=== PATIENT | female | born 1950 | race Caucasian/White ===

== ENCOUNTER → 2020-11-19 11:45 | Outpatient (CLI) | payer MEDICARE, SELFPAY ==
--- NOTE | 2020-11-19 11:48 | DI.MG.S_ITS ---
BILATERAL DIGITAL SCREENING MAMMOGRAM 3D/2D WITH CAD: 11/19/2020 CLINICAL: Routine screening. Comparison is made to exams dated: 06/24/2017 mammogram, 05/13/2015 mammogram - [facility], and 11/07/2008 mammogram - [facility]. The tissue of both breasts is heterogeneously dense. This may lower the sensitivity of mammography. Current study was also evaluated with a Computer Aided Detection (CAD) system. There is an irregular asymmetry with an obscured margin in the left breast middle depth lateral region seen on the craniocaudal view only. This is more prominent. No other significant masses, calcifications, or other findings are seen in either breast. IMPRESSION: INCOMPLETE: NEEDS ADDITIONAL IMAGING EVALUATION The irregular asymmetry in the left breast is indeterminate. Additional views with possible ultrasound are recommended. This exam was interpreted at Station ID: [id number]. NOTE: For mammograms, a report in lay terms will be sent to the patient. Approximately 15% of breast malignancies will not be visualized mammographically. In the management of a palpable breast mass, a negative mammogram must not discourage biopsy of a clinically suspicious lesion. Electronically Signed By: Germania gambino/riley:11/19/2020 16:24:30 copy to: KHOA WALSH letter sent: Additional Imaging Needed ACR BI-RADS Category 0: Incomplete [id number]
== END ==
PROVIDERS: Family Provider Registered Nurse; PCP Registered Nurse; Referring Provider Registered Nurse; Visit Provider Registered Nurse
DX: Z12.31 Encounter for screening mammogram for malignant neoplasm of breast (principal); M85.851 Other specified disorders of bone density and structure, right thigh; Z78.0 Asymptomatic menopausal state
CPT/HCPCS: 77063; 77067; 77080

== ENCOUNTER → 2020-12-05 12:40 | Outpatient (CLI) | payer MEDICARE, SELFPAY ==
--- NOTE | 2020-12-05 | DI.MG.S_ITS ---
UNILATERAL LEFT DIGITAL DIAGNOSTIC MAMMOGRAM 3D/2D WITH ADDITIONAL VIEWS: 12/05/2020 CLINICAL: Additional evaluation requested from prior study. Comparison is made to exams dated: 11/19/2020 mammogram - [facility], 06/24/2017 mammogram, and 05/13/2015 mammogram - [facility]. The tissue of left breast is heterogeneously dense. This may lower the sensitivity of mammography. There is an oval equal density asymmetry with an indistinct margin in the left breast middle depth lateral region seen on the craniocaudal view only. This is less prominent on additional views. No other significant masses or calcifications are seen in the breast. IMPRESSION: INCOMPLETE: NEEDS ADDITIONAL IMAGING EVALUATION The oval equal density asymmetry in the left breast is indeterminate. An ultrasound is recommended. Ultrasound will be performed immediately following the current exam. This exam was interpreted at Station ID: [id number]. NOTE: For mammograms, a report in lay terms will be sent to the patient. Approximately 15% of breast malignancies will not be visualized mammographically. In the management of a palpable breast mass, a negative mammogram must not discourage biopsy of a clinically suspicious lesion. Electronically Signed By: James Dee M.D. ddp/:12/05/2020 13:15:05 copy to: KHOA WALSH ACR BI-RADS Category 0: Incomplete [id number]
--- NOTE | 2020-12-05 12:42 | DI.US.S_ITS ---
LIMITED ULTRASOUND OF LEFT BREAST: 12/05/2020 CLINICAL: Patient returns today to evaluate a focal asymmetry in the left breast. Comparison is made to exams dated: 12/05/2020 mammogram - [facility], 06/24/2017 mammogram - [facility] [place], 11/19/2020 mammogram - [facility], 05/13/2015 mammogram - [facility] [place], and 11/07/2008 mammogram - [facility]. Real-time ultrasound of the left breast 2-5 o'clock region was performed on the area of interest. No discrete cystic or solid mass lesion identified in the area of mammographic abnormality. IMPRESSION: PROBABLY BENIGN There are no abnormalities seen in the lateral left breast to correspond with the mammography finding. A follow-up mammogram in 6 months is recommended to demonstrate stability. This exam was interpreted at Station ID: [id number]. Electronically Signed By: James Dee M.D. ddp/:12/05/2020 14:10:15 copy to: KHOA WALSH letter sent: Followup Recommended Ultrasound BI-RADS: 3 Probably benign
== END ==
PROVIDERS: Family Provider Registered Nurse; PCP Registered Nurse; Referring Provider Registered Nurse; Visit Provider Registered Nurse
DX: R92.8 Other abnormal and inconclusive findings on diagnostic imaging of breast (principal)
CPT/HCPCS: 76642; 77065; G0279

== ENCOUNTER → 2021-05-21 12:03 | Outpatient (CLI) | payer MEDICARE, SELFPAY ==
[2021-05-21 14:41] LABS: COVID19 -Nasal RAPID Negative (Negative)
== END ==
PROVIDERS: Family Provider Registered Nurse; PCP Registered Nurse; Visit Provider Obstetrics & Gynecology
DX: Z20.822 Contact with and (suspected) exposure to COVID-19 (principal); Z01.812 Encounter for preprocedural laboratory examination
CPT/HCPCS: 87635

== ENCOUNTER 2021-05-23 11:45 | Observation (INO) | payer MEDICARE, SELFPAY ==
[2021-05-16 12:27] VITALS: BMI 26.4
[2021-05-22] VITALS (13 sets, daily range): BP systolic 85–127; BP diastolic 40–74; PULSE 57–94; RESP 10–18; TEMP 36.1–36.7; O2SAT 92–100; BMI 26.4
--- NOTE | 2021-05-22 | PATH_ITS ---
[facility] Accession Number: [id number] . 01 Material submitted: . uterus - UTERUS, BILATERAL FALLOPIAN TUBES AND OVARIES . 01 Clinical history: . LAVH BSO A/P TVT W/CYSTO *OPB* . 02 Diagnosis: Uterus, Bilateral Fallopian Tubes and Ovaries, Laparoscopic-Assisted Vaginal Hysterectomy with Bilateral Salpingo-oophorectomy (Weight 39 grams): Cervix with focal parakeratosis. Endocervix with no significant histomorphologic abnormality. Endometrium with cystic atrophy and a benign polyp (7 mm); negative for glandular hyperplasia, cytologic atypia, or malignancy. Myometrium with no significant histomorphologic abnormality. Myometrial vessels with Monckeberg's calcification. Uterine serosa with no significant histomorphologic abnormality. Right ovary with a benign serous cyst (3 mm). Left ovary with multiple benign inclusion cysts (1 mm). Right and left fallopian tubes with minute, benign paratubal cysts (less than 1 mm) and no significant histomorphologic abnormality; negative for atypia or malignancy. [facility] 05/26/2021 1509 Local . 02 Electronically signed: . Sharmila Wells MD, Pathologist NPI- [id number] . 01 Gross description: . The specimen is received in formalin, labeled uterus, bilateral fallopian tubes and ovaries and consists of a 39-gram uterus, cervix, bilateral fallopian tubes and bilateral ovaries. The specimen measures 7.5 cm from superior fundus to cervix by 4.4 cm from cornu to cornu by 2.5 cm from anterior to posterior. The mendez smooth and focally disrupted ectocervix measures 3.0 x 2.9 cm and there is a 1.0 x 0.1 cm os. The serosa is mendez-pink and smooth. The specimen is bivalved to reveal a mendez herringbone endocervical mucosa. The endometrial cavity measures 2.8 x 1.5 cm and displays a mendez-pink hemorrhagic endometrium measuring 0.1 cm in thickness with a 0.7 x 0.5 x 0.3 cm mendez-pink cystic polyp within the posterior endometrial cavity. The myometrium is mendez-pink and trabeculated measuring 1.5 cm in thickness. The right ovary measures 1.5 x 0.9 x 0.5 cm and the left ovary measures 1.9 x 0.8 x 0.6 cm. The external surfaces are mendez and cerebriform. There is a 0.3 x 0.3 x 0.2 cm mendez smooth-walled cyst within the right ovary, with no capillary excrescences. The fallopian tubes average 2.8 cm in length by 0.6 cm in diameter and the fimbria are not present. The serosa is mendez-pink and smooth. Sectioning reveals a mendez mucosa and a lumen measuring 0.3 cm in diameter. Product Development Specialist sections are submitted. . A1: Anterior cervix. A2: Posterior cervix. A3: Anterior uterus, full-thickness sections. A4: Posterior uterus, full-thickness sections to include polyp entirely submitted. A5: Posterior uterus, full-thickness sections. A6: Right ovary, bisected and entirely submitted. A7: Right fallopian tube, bisected tip and central cross-sections. A8: Left ovary, bisected and entirely submitted. A9: Left fallopian tube, bisected tip and central cross-sections. (EA:[id number]) /MRV 05/23/2021 1212 Local . 02 Pathologist provided ICD-10: N81.4, N81.10, N81.6, N39.3 . 02 CPT . 892846 Performed at: 01 [facility] Cytology [address], [place], [place] [id number] MD James Rao MD Phone: [phone] Performed at: 02 [facility] [address] [place], [place] [id number] MD Talia Rayo MD Phone: [phone]
[2021-05-22] MEDS: LACTATED RINGERS 1,000 ML 100 ML IV ×3 (10:00→16:24)
--- NOTE | 2021-05-22 10:58 | PM.PREOP ---
Pre-operative Note COVID-19 COVID-19 status: Negative Interval Note History & Physical reviewed/Exam performed by Physician: Yes Changes to H&P: No H&P completed within 30 days and has changed as indicated here:: 05/15/21
[2021-05-22] MEDS: CEFAZOLIN 1 GM VIAL 2 GM IV (11:45)
[2021-05-22] MEDS: BUPIVACAINE 0.5% (PF) VIAL 30 ML INJ (12:11)
--- NOTE | 2021-05-22 12:13 | SUR.OPER ---
Lithotomy on padded OR bed. Motley Pad Positioner under torso. Head on pillow, arms padded and tucked at sides. Legs secured in padded yellow fins stirrups.
[2021-05-22] MEDS: fentaNYL 100 MCG/2 ML INJ IV ×2 (14:45→14:55)
[2021-05-22] MEDS: OXYCODONE IR 5 MG TABLET PO ×3 (14:55→21:01)
--- NOTE | 2021-05-22 15:06 | SUR.PHASEI ---
Received to PACU after general anesthesia. Airway patent, self maintained. Report received from Dr Nash and JESÚS Batista.
--- NOTE | 2021-05-22 15:33 | SUR.PHASEI ---
Pt transferred to room 225 by JESÚS Hoff.
[2021-05-22] MEDS: ACETAMINOPHEN 325 MG TABLET 650 MG PO (16:25)
[2021-05-22] MEDS: GABAPENTIN 600 MG TABLET PO (20:27)
[2021-05-22] MEDS: DOCUSATE 100 MG CAPSULE 200 MG PO (20:27)
[2021-05-22] MEDS: IBUPROFEN 600 MG TABLET PO (21:01)
[2021-05-23] MEDS: OXYCODONE IR 5 MG TABLET PO ×2 (01:04→14:36)
[2021-05-23] MEDS: LACTATED RINGERS 1,000 ML 100 ML IV (01:04)
[2021-05-23 01:45] VITALS: BP 120/67; PULSE 60; RESP 14; TEMP 36.5; O2SAT 97
[2021-05-23 05:48] VITALS: BP 119/60; PULSE 62; RESP 14; TEMP 36.3; O2SAT 96
[2021-05-23] MEDS: IBUPROFEN 600 MG TABLET PO (06:57)
[2021-05-23 07:15] VITALS: BP 110/59; PULSE 62; RESP 15; TEMP 36.6; O2SAT 99
--- NOTE | 2021-05-23 09:24 | PM.GYNOP.1 ---
Operative Date/Time/Diagnoses Date of procedure: 05/22/21 Time of procedure: 14:30 Pre-op diagnosis: Uterine prolapse Cystocele Rectocele Stress urinary incontinence Post-op diagnosis: same Procedure & Clinicians Procedure: Procedures Operation Date: 05/22/21 09:45 Actual Procedure Side Surgeon p Laparoscopic Assisted Vag Hysterectomy, bilateral salpingo oophorectomy, Milla Su MD s Posterior Repair Milla Su MD s TVT w. cystoscopy Milla Su MD Indications: Symptomatic Uterine prolapse, cystocele, rectocele Stress urinary incontinence Surgeon: iMlla Su Website Project Manager: Nestor Gomes Anesthesia Type: General and Local Operative Notes Findings: 5 week size prolapsed uterus Normal tubes and ovaries Third-degree rectocele Enterocele Increased urethrovesical angle with Valsalva Closure Type: primary Specimen(s): left tube & ovary, right tube & ovary and uterus Applied: catheter (To continuous drainage) Estimated blood loss (mL): 100 Blood products transfused: none Procedure in detail: The patient was taken to the operating room where she was placed in the dorsal supine position. After adequate general endotracheal anesthesia was achieved, she was placed in the dorsal lithotomy position, and prepped and draped in the usual sterile fashion. A timeout was performed. A bivalve speculum was placed into the vagina, and a single-tooth tenaculum was placed on the anterior lip of the cervix. The cervical os was sequentially dilated until the ZUMI uterine manipulator could pass easily into the endometrial cavity. The single-tooth tenaculum was removed from the anterior lip of the cervix, and the bivalve speculum was removed from the vagina. Attention was then turned to the abdomen where 6 mL of dilute half percent Marcaine with epinephrine were injected in the umbilical fold. A 5 mm incision was made. The Verees needle was placed into the peritoneal cavity, and its placement confirmed by aspiration and drop test. The abdominal cavity was insufflated with 4 L of CO2. The Verees needle was removed, and a 5 mm trocar was placed without difficulty. Initial inspection of the pelvis revealed the findings noted above. 2 other incisions were made midway between the pubic symphysis and umbilicus 4 cm lateral to the midline. These were 5 mm incisions. Two 5 mm trochars were placed under direct visualization. The right tube and ovary were grasped with an atraumatic grasper. The infundibulopelvic ligament on the right side was cauterized and cut with plasma kinetic. The round ligament and broad ligament were cauterized and cut. This was continued to the level of the uterine arteries. This was repeated on the patient's left side. The instruments were removed from the abdomen. Attention was then turned to the vagina where the ZUMI uterine manipulator was removed from the uterus. The cervix was grasped with a 4 tooth tenaculum. 10 mL of dilute quarter percent Marcaine with epinephrine were injected circumferentially around the cervix. The cervix was circumscribed. The bladder and rectum were dissected off the lower uterine segment and cervix with an open moistened Ray-Janice. The peritoneum was entered sharply with the Metzenbaum scissors anteriorly and a Toro placed. The peritoneum was entered posteriorly with the Metzenbaum scissors and the long weighted speculum was placed into the posterior cul-de-sac. The uterosacral cardinal ligament complexes were clamped, transected, and suture ligated with 0 Vicryl. These were attached to a hemostat. The uterine arteries were clamped, transected, and suture ligated with 0 Vicryl. The uterus was handed off for specimen with the tubes and ovaries. The peritoneum was closed with a pursestring suture with 2-0 Vicryl. The vaginal cuff was closed with 0 Vicryl with a series of simple interrupted sutures. The tagged sutures were cut. Allis clamps were placed at the mucocutaneous junction at the introitus. 6 mL of dilute half percent Marcaine with epinephrine were injected. An incision was made with a #10 blade between the 2 Allis clamps, and a triangular piece of skin and underlying subcutaneous tissue was removed. Allis clamps were placed in the midline of the rectocele. 10 mL of dilute half percent Marcaine with epinephrine were injected submucosally. The mucosa was undermined using the Metzenbaum scissors and the mucosa incised in the midline, moving the wide Allis clamps to the mucosal edges. The underlying fascia was dissected off of the mucosa using an open moistened Ray-Janice and a #10 blade. A pursestring suture was used to close an enterocele with 2 0 Vicryl. The fascia was reapproximated using 0 Vicryl with a series of horizontal mattress sutures. The excess vaginal mucosa was excised. The mucosa was closed using a series of simple interrupted sutures with 2-0 Vicryl including the underlying fascia to close the space. On the perineum 0 Vicryl was used to reapproximate the levator muscle. The subcutaneous layer was closed with 2-0 Vicryl. The skin was closed with 3-0 chromic in a subcuticular fashion. Hemostasis was achieved. The patient was placed flat on the table with her thighs parallel to the floor. The midline on her abdomen and 2 cm lateral to the midline on each side were marked with. 100 cc of sterile saline were placed into the space of Retzius behind the pubic symphysis. A weighted speculum was placed into the vagina. 2 Allis clamps were placed lateral to the urethral meatus approximately 1 cm distal. 3 mL of a dilute quarter percent Marcaine were placed submucosally. A 1 cm incision was made 1.5 cm away from the urethral meatus. This was dissected out laterally with the Metzenbaum scissors. A rigid catheter was placed into the bladder. With the bladder neck retracted away from the patient's right side 10 mL of the dilute local were placed aiming towards the patient's right shoulder up behind the pubic symphysis. This was repeated on the patient's left side, with the bladder neck retracted away from the patient's left side. The spaces were dissected out to the 6. Hegar dilator. After the TVT was loaded and with the bladder neck retracted away from the patient's right side the TVT was directed towards the patient's shoulder on the right side, perforating the urogenital diaphragm, and then directed up behind the pubic symphysis and the introducer came out approximately 2 cm lateral to the midline on the left side. A small 3 mm kimani in the skin was made and the introducer was brought up and grasped with a [place]. This was repeated on the patient's left side with the bladder neck retracted away from the patient's left side. The rigid portion of the catheter was removed. The bladder was filled with 240 mL of sterile saline. A cystoscopy was performed and there was no TVT or introducer visible in the bladder. The 2 introducers were pulled up with care not to over tighten the TVT. The patient was made to cough and initially there was a spurt of fluid from the urethral meatus. The TVT was pulled slightly. A second cough produced no leakage. The plastic covering of the TVT was removed. The TVT was cut below the skin edge, with care not to over tighten. Jones scissors were placed between the TVT and urethra to prevent tension. The mucosa was closed with 3-0 Vicryl with a running interlocking suture. Hemostasis was achieved. Attention was then turned back to the abdomen. The abdomen was again insufflated with approximately 3.5 L of CO2. The vaginal cuff was examined. There was a small amount of bleeding coming from the peritoneal edge. This was cauterized with the plasma kinetic for hemostasis. The vaginal cuff was observed for approximately 10 minutes there was no further bleeding. The pelvis was copiously irrigated with warm normal saline. The instruments were removed from the abdomen. The CO2 was allowed to escape. The incisions were repaired with 4-0 Biosyn in a subcuticular fashion. Steri strips and Allevyn dressings were placed over the laparoscopy incisions. The TVT incisions were covered with Dermabond. A vaginal packing moistened with Betadine was placed into the vagina. The Savage catheter was connected to a Savage bag. Sponge, laps, and instrument counts were correct x-2. The patient tolerated the procedure well, and was taken to PACU in stable condition. Complications: none Post-operative Condition: stable Disposition: PACU Plan for aftercare: To acute care after recovery
[2021-05-23] MEDS: ACETAMINOPHEN 325 MG TABLET 650 MG PO (09:27)
[2021-05-23] MEDS: DOCUSATE 100 MG CAPSULE 200 MG PO (09:29)
[2021-05-23 12:41] VITALS: BP 122/59; PULSE 67; RESP 18; TEMP 36.4; O2SAT 99
--- NOTE | 2021-05-23 12:57 | PC.NURSE ---
Addendum entered by Sandy Rodriguez R.N. 05/23/21 14:23: Patient up and tried to void again, she sat on the toilet for about 25 minutes and unable to go. Just bladder scanned and she has another 485cc in her bladder. Just let be aware and waiting to see what she sais. Original Note: Patients franco catheter out around 0600 and packing by Noc Shift RN. Patient helplocked and drinking plenty. Up to try and use the bathroom and unsuccessful x2. Turned on the shower water and gave patient a warm cup of water to see if this would help her go. in previously around 1015 and wanted us to call her back if patient unable to void. She was bladder scanned and on the left side of her bladder she had 483 left and in lower center of bladder she scanned for 593. gave orders for patient to be in/out cathed and then give her 3 hours to void and repeat the process from this am. Will get patient up around 1330 to see if she can void on her own. She is drinking coffee and water. If she is unable to void or if she does we will do a PVR to see how much urine is left in her bladder. After in/out cath patient put out 400cc of yellow urine in the bag, and her pvr was 6cc. Dressings x3 to lower abdomen with allevyn foam border dressings that are all cdi. Patient has a edlfina pad on with minimal bleeding. She was given some tylenol for discomfort and is comfortable at this time. It will be 3 hours at 1440, will call around this time and let her know what is going on.
--- NOTE | 2021-05-23 15:41 | CM.IDA ---
Initial DCP Assessment Note Pt is a 71 yo female, resident of [place] [facility], POD#1 from Laparoscopic Assisted Vag Hysterectomy, bilateral salpingo oophorectomy,s Posterior Repair s TVT w. cystoscopy by Milla Su MD According to notes, patient may or stay another evening, unable to void today. PCP: Juan Reed Payer: [employer] Met w/patient this morning, introduced role. Patient in good spirits and feeling confident about her return home w/family to assist. Patient denies needs from this COUNTY AGENT and states either her SO or family will transport home when medically cleared. No DC needs anticipated but will remain available in case any DC needs or concerns arise. FLORENCE Hunter Discharge Planning/Care Management CM Discharge Assessment Start: 05/23/21 15:38 Freq: Status: Active Protocol: Document 05/23/21 15:39 JACQUELINE (Rec: 05/23/21 15:41 JACQUELINE [id number]) Discharge Planning Assessment Assigned Price Analyst FLORENCE Henry DPOA/Assigned Designee Name Juanita Fischer dtr Contact Information [phone] Advance Directives? Yes Advance Directives on File No History Provided By Patient Prior Living Arrangements House Household Members significant other Type of transporation used prior to Drives own vehicle admit Independent with ADL's Yes Is patient alert and oriented? Yes Barriers to Discharge No Discharge Plan Home Transportation Arrangement Friend or dtr to transport home Referrals Initiated None needed Whiteboard Updated in Patient Room with Yes name and ext. # of Price Analyst
[2021-05-23 15:45] VITALS: BP 126/58; PULSE 76; RESP 17; TEMP 36.4; O2SAT 100
--- NOTE | 2021-05-23 17:16 | PC.NURSE ---
Discharge Note Patient A&O, VSS, RA no complaints of pain or discomfort. Discharge instructions reviewed with patient and daughter at bedside. Extensive education done on leg bag/catheter maintenance and sterile switching of bags. Written information provided as well. All questions/concerns addressed. PIV removed and franco bags swapped at bedside to leg bag with patient and daughter at bedside. Patient given a bag of supplies to take home including alcohol wipes, delfina pads, mesh briefs, basin and leg and franco catheter bag. All belongings packed and given to patient alone with discharge information and supplies. Patient taken down via wheelchair to POV.
== END 2021-05-23 17:00 | disposition home or self-care (01) ==
LOC: OR 12:01 → AC 12:01
PROVIDERS: Admitting Provider Obstetrics & Gynecology; Family Provider Registered Nurse; PCP Registered Nurse; Referring Provider Obstetrics & Gynecology; Visit Provider Obstetrics & Gynecology
PROC: 0UT9FZZ Resection of Uterus, Via Natural or Artificial Opening With Percutaneous Endoscopic Assistance (ICD-10-PCS; CPT 57250; principal; 2021-05-22 09:45)
PROC: (CPT 57250; 2021-05-22 09:45)
PROC: 0TSD0ZZ Reposition Urethra, Open Approach (ICD-10-PCS; CPT 57250; 2021-05-22 09:45)
DX: N81.89 Other female genital prolapse (principal); N81.10 Cystocele, unspecified; N81.6 Rectocele; N39.3 Stress incontinence (female) (male); E78.5 Hyperlipidemia, unspecified; N83.201 Unspecified ovarian cyst, right side; N83.292 Other ovarian cyst, left side; N83.8 Other noninflammatory disorders of ovary, fallopian tube and broad ligament; N84.0 Polyp of corpus uteri
CPT/HCPCS: 57250; 57288; 58552; C1771; G0378; J0690; J1100; J2405; J2704; J3010

== ENCOUNTER → 2021-06-30 08:07 | Outpatient (CLI) | payer MEDICARE, SELFPAY ==
[2021-05-22 19:40] VITALS: BMI 26.4
[2021-06-30 19:05] LABS: COVID19 -Nasal RAPID Negative (Negative)
== END ==
PROVIDERS: Family Provider Registered Nurse; PCP Registered Nurse; Visit Provider Obstetrics & Gynecology
DX: Z20.822 Contact with and (suspected) exposure to COVID-19 (principal); Z01.812 Encounter for preprocedural laboratory examination
CPT/HCPCS: 87635; C9803

== ENCOUNTER 2021-07-01 09:01 | Day surgery (SDC) | payer MEDICARE, SELFPAY ==
[2021-05-22 19:40] VITALS: BMI 26.4
[2021-06-30 12:27] VITALS: BMI 25.5
[2021-07-01] VITALS (13 sets, daily range): BP systolic 117–156; BP diastolic 51–82; PULSE 60–72; RESP 13–16; TEMP 36.4–37.1; O2SAT 98–100; BMI 25.7
[2021-07-01] MEDS: LACTATED RINGERS 1,000 ML 100 ML IV ×2 (10:02→12:18)
--- NOTE | 2021-07-01 10:41 | P.HP_ITS ---
History of Present Illness History of Present Illness Date Patient Seen: 07/01/21 Time Patient Seen: 10:41 Chief complaint: RELEASE TVT (SLING) W/CYSTO Narrative: Patient is a 71-year-old 2 para 2 with urinary retention status post TVT She is here for release of the TVT and cystoscopy Patient History Medical History Ankle pain (~2012) Foot pain (~2019) Hyperlipidemia Osteoarthritis (~2012) Restless leg syndrome (~2015) Urinary incontinence Surgical History Anesthesia H/O total hip arthroplasty (~2019) H/O vaginal delivery History of cataract removal with insertion of prosthetic lens (~2015) History of total left hip arthroplasty Previous section (~1978) S/P laparoscopic assisted vaginal hysterectomy (LAVH) (05/22/21) Family & Social History Family History Father Diabetes mellitus Mother Diabetes mellitus Social History: household members significant other Tobacco & Substance use: Smoking Status Never smoker alcohol intake never Substance Use Type does not use Meds Home Medications and Allergies Home Medications Medication Instructions Recorded Confirmed Type gabapentin 300 mg capsule 600 mg PO BEDTIME cap 10/31/20 07/01/21 History nitrofurantoin macrocrystal 100 mg 100 mg PO DAILY #30 cap 06/05/21 07/01/21 Rx capsule (Macrodantin) Allergies Allergy/AdvReac Type Severity Reaction Status Date / Time erythromycin base AdvReac Mild NAUSEA Verified 07/01/21 09:46 [From ERYTHROCIN] Exam Vital Signs (past 8 hours): - 07/01/21 09:22 Temperature 98.7 F Pulse Rate 66 Respiratory Rate 16 Blood Pressure 125/69 Pulse Oximetry 100 Oxygen Delivery Method Room Air Narrative Exam Narrative: HEENT: No thyromegaly, no anterior cervical or supraclavicular lymphadenopathy. Lungs:Clear to auscultation bilaterally, no wheezes. Cardiovascular: Regular rate and rhythm, no murmurs, rubs, or gallops. Abdomen: Well-healed laparoscopy and suprapubic scars. No hepatosplenomegaly. No masses palpable. External genitalia: Normal Vagina: Normal TVT is not palpable. No sutures visible Cervix: Absent Bimanual exam: No masses or tenderness Assessment & Plan Assessment & Plan narrative: Assessment: 71-year-old 2 para 2 with urinary retention status post TVT Plan: Release of TVT and cystoscopy The risks, benefits, and alternatives to the procedure were explained to the p atient. The risks including bleeding and infection. She understands these risks and agrees to proceed. A full par Q was held and consent form was signed. COVID-19 COVID-19 status: Negative Result date/Date tested (Pos, Neg/Pending): 06/30/21 Time Spent With Patient Time with patient: less than 30 minutes Critical Care time: I spent a total of [] minutes of critical care time on this patient's care today; this time is exclusive of procedural time.
--- NOTE | 2021-07-01 10:43 | PM.PREOP ---
Pre-operative Note COVID-19 COVID-19 status: Negative Result date/Date tested (Pos, Neg/Pending): 06/30/21 Interval Note History & Physical reviewed/Exam performed by Physician: Yes Changes to H&P: No H&P completed within 30 days and has changed as indicated here:: 07/01/21
[2021-07-01] MEDS: CEFAZOLIN 1 GM VIAL 2 GM IV (10:48)
--- NOTE | 2021-07-01 10:59 | SUR.OPER ---
Lithotomy on padded OR bed, head on pillow, arms secured on padded arm boards at <90 degrees abduction. Legs secured in padded yellow fins stirrups.
[2021-07-01] MEDS: OXYCODONE/ACETAMINOPHEN 5/325 TABLET 1 TAB PO (11:54)
--- NOTE | 2021-07-01 13:02 | PM.GYNOP.1 ---
Operative Date/Time/Diagnoses Date of procedure: 07/01/21 Time of procedure: 11:15 Pre-op diagnosis: Urinary retention after previous TVT Post-op diagnosis: same Procedure & Clinicians Procedure: Procedures Operation Date: 07/01/21 10:30 Actual Procedure Side Surgeon p Release TVT (sling) W/ Cystoscopy Milla Su MD Indications: Urinary retention after previous TVT Surgeon: Milla Su Anesthesia Type: General ( LMA) Operative Notes Findings: No erosion of the TVT into the urethra or bladder TVT not visible or palpable on the anterior vaginal wall Closure Type: primary Specimen(s): none Estimated blood loss (mL): 5 Blood products transfused: none Procedure in detail: After informed consent was obtained, the patient was taken to the operating room where she was placed in the dorsal supine position. After adequate LMA general anesthesia was achieved, she was placed in the dorsal lithotomy position, and prepped and draped in the usual sterile fashion. A time-out was performed. A retractor was placed into the vagina posteriorly. Allis clamps were placed off of the midline approximately 1 cm from the urethral meatus. The anterior wall mucosa sutures were removed. The TVT was visible and palpable on the anterior vaginal wall. The TVT was cut in the midline and there was immediate release of the urethra. The TVT was trimmed so that no pieces were hanging. The mucosa was closed with a running suture with 4 0 Vicryl. Hemostasis was achieved. A cystoscopy was performed by placing the cystoscope into the bladder. No TVT was visible in the bladder or the urethra. The urethra was examined as the cystoscope was withdrawn. The speculum was removed from the vagina. Sponge, lap, and instrument counts were correct x2. The patient tolerated the procedure well, and was taken to PACU in stable condition. Complications: none Post-operative Condition: stable Disposition: PACU Plan for aftercare: Home after recovery an demonstration that she is able to empty her bladder without high residuals
--- NOTE | 2021-07-01 13:50 | SUR.PHASEII ---
1330 Got up and tried to urinate. Unable to. Bladder scanner showed [address] Su notified. Stated to give more fluids and try again in an hour at 1430
--- NOTE | 2021-07-01 15:20 | SUR.PHASEII ---
4715.After trying to void an hour ago and being unable to, drank coffee and a cup of water as well as getting 500 ml IV fluids was now able to void 250 plus 200 for a total of 450. Bladder scan done which showed no residual. Dr Su called and notified
== END 2021-07-01 15:07 | disposition home or self-care (01) ==
PROVIDERS: Family Provider Registered Nurse; PCP Registered Nurse; Referring Provider Obstetrics & Gynecology; Visit Provider Obstetrics & Gynecology
PROC: 0UDB8ZZ Extraction of Endometrium, Via Natural or Artificial Opening Endoscopic (ICD-10-PCS; CPT 58558; principal; 2021-07-01 10:30)
DX: R33.8 Other retention of urine (principal); R32 Unspecified urinary incontinence; G25.81 Restless legs syndrome; E78.5 Hyperlipidemia, unspecified
CPT/HCPCS: 57287; J0171; J0690; J1100; J1885; J2405; J2704

== ENCOUNTER → 2021-11-26 17:11 | Outpatient (CLI) | payer MEDICARE, SELFPAY ==
[2021-05-22 19:40] VITALS: BMI 26.4
== END ==
PROVIDERS: Family Provider Registered Nurse; PCP Registered Nurse; Visit Provider Obstetrics & Gynecology
DX: N31.9 Neuromuscular dysfunction of bladder, unspecified (principal); N39.41 Urge incontinence; R31.9 Hematuria, unspecified
CPT/HCPCS: 87086